=== PATIENT | male | born 1945 | race Caucasian/White ===

== ENCOUNTER 2021-12-03 15:39 | Inpatient (IN) | payer MEDICARE ==
[~2021-12-03] VITALS: Ht 175.3 cm; Wt 74.8 kg
[2021-12-03] MEDS ORDERED: ATOR20TA PO (16:09)
[2021-12-03] MEDS ORDERED: ESCI10TA PO (16:09)
[2021-12-03] MEDS ORDERED: FOLI0.4T6 PO (16:09)
[2021-12-03] MEDS ORDERED: LEVO75TA7 PO (16:09)
[2021-12-03] MEDS ORDERED: SENN-175 PO (16:09)
[2021-12-03] MEDS ORDERED: TEMAZEPAM 7.5 MG CAPSULE PO PRN (16:30)
[2021-12-03] MEDS ORDERED: MAGNESIUM HYDROXIDE 30 ML UDC PO PRN (16:30)
[2021-12-03] MEDS ORDERED: ACETAMINOPHEN 325 MG TABLET PO PRN (16:30)
[2021-12-03] MEDS ORDERED: MAG HYDROX/AL HYDROX/SIMETH 30 ML UDC PO PRN (16:30)
[2021-12-03] MEDS ORDERED: clonazePAM 0.5 MG TABLET PO PRN (16:30)
[2021-12-03] MEDS ORDERED: BLOOD SUGAR DIAGNOSTIC 1 EACH STRIP IN ONE (16:30)
[2021-12-03 16:40] VITALS: BP 107/56
--- NOTE | 2021-12-03 18:09 | NUR ---
Admitted a 75 years male from [facility] on 5150 for DTS. Radio call for a missing person. Pt. was upset/suicidal due to declining health. Pt. was located in a hotel with empty bottle of [place] and a large bottle of whiskey. Pt. left a suicide note and a packaged property for family. Upon face to face assessment the reason he overdosed on [place] with alcohol due to his physical symptoms getting worst but denied suicidal at this time and denied being hopeless and said he is depressed. V/S taken, contraband done and pt. is selective in signing the admissions papers. Dr. Hammond made aware of the admission and gave orders. Velasquez Woodard made aware of the admission, reconciled meds, ordered hat pt. may do self catheterization and Velasquez Woodard came and assessed and spoke to pt. Will endorse to incoming nurse for the completion of the admission
--- NOTE | 2021-12-03 18:22 | NUR ---
Per pt. has an advance directive but she is not bringing with her and said it's a Full Code and was advised to bring the advance directive papers.
[2021-12-03] MEDS: PREGABALIN 25 MG CAPSULE PO SCH (18:59)
[2021-12-03 20:07] VITALS: BP 129/67
[2021-12-03] MEDS: SENNOSIDES 8.6 MG TABLET PO SCH (21:12)
[2021-12-03] MEDS: ATORVASTATIN 10 MG TABLET PO SCH (21:13)
[2021-12-04 08:00] VITALS: BP 133/66
[2021-12-04] MEDS: PREGABALIN 25 MG CAPSULE PO SCH ×3 (09:00→17:00)
[2021-12-04] MEDS: LEVOTHYROXINE SODIUM 75 MCG TABLET PO SCH ×2 (09:00→09:03)
[2021-12-04] MEDS: SENNOSIDES 8.6 MG TABLET PO SCH ×2 (09:02→21:11)
[2021-12-04] MEDS: FOLIC ACID 1 MG TABLET PO SCH (09:04)
[2021-12-04] MEDS: ESCITALOPRAM OXALATE (10 MG) 10 MG TABLET PO SCH (11:41)
[2021-12-04 11:43] LABS: CALCIUM, SERUM 8.9 mg/dL (8.5-10.1); CARBON DIOXIDE 22 mmol/L (21-32); CHLORIDE 108 mmol/L (98-107); CREATININE 1.9 mg/dL (0.6-1.3); GLUCOSE 88 mg/dL (74-106); POTASSIUM 4.8 mmol/L (3.5-5.1); SODIUM SERUM 141 mmol/L (136-145); UREA NITROGEN, BLOOD 30 mg/dL (7-18)
[2021-12-04 11:44] LABS: ALANINE AMINOTRANSFERASE 33 U/L (12-78); ALBUMIN 3.2 g/dL (3.4-5.0); ASPARTATE AMINOTRANSFERASE 26 U/L (15-37); BILIRUBIN,TOTAL 0.4 mg/dL (0.2-1.0); TOTAL PROTEIN, SERUM 5.8 g/dL (6.4-8.2)
[2021-12-04 14:30] LABS: ALKALINE PHOSPHATASE 69 U/L (46-116)
[2021-12-04 16:00] VITALS: BP 125/67
--- NOTE | 2021-12-04 18:49 | NUR ---
IN AM AGITATED AND ADAMANT ABOUT NOT TAKING LYRICADUE TO KIDNEY PROBLEMS
[2021-12-04 20:00] VITALS: BP 107/68
[2021-12-04 20:43] LABS: CHOLESTEROL 139 mg/dL (<200); HDL CHOLESTEROL 51 mg/dL (40-60); LDL 58 mg/dL (0-99); TRIGLYCERIDES 159 mg/dL (30-150)
[2021-12-04] MEDS: ATORVASTATIN 10 MG TABLET PO SCH (21:17)
--- NOTE | 2021-12-04 21:17 | NUR ---
RN NOTES: REFUSEL MEDICATIONS PT. REFUSED SCHEDULE LIPITOR 20 MG PO, PER PT. I NO NEED TO TAKE LIPITOR AND MY PRIMARY CARE STOP ME THIS MEDICATIONS, ENCOURAGED X3 RISKS AND BENEFITS EXPLINED BUR PT STRONGLY REFUSED.
[2021-12-05 08:00] VITALS: BP 112/61
[2021-12-05] MEDS: SENNOSIDES 8.6 MG TABLET PO SCH ×2 (08:02→20:58)
[2021-12-05] MEDS: LEVOTHYROXINE SODIUM 75 MCG TABLET PO SCH (08:02)
[2021-12-05] MEDS: FOLIC ACID 1 MG TABLET PO SCH (08:02)
[2021-12-05] MEDS: PREGABALIN 25 MG CAPSULE PO SCH ×3 (08:02→16:49)
[2021-12-05] MEDS: ESCITALOPRAM OXALATE (10 MG) 10 MG TABLET PO SCH (08:02)
[2021-12-05 16:00] VITALS: BP 121/69
[2021-12-05 19:50] VITALS: BP 118/66
[2021-12-05] MEDS: ATORVASTATIN 10 MG TABLET PO SCH (21:19)
--- NOTE | 2021-12-05 22:48 | NUR ---
Patient refused skin assessment.
[2021-12-06 08:00] VITALS: BP 126/70
[2021-12-06 08:51] LABS: CALCIUM, SERUM 9.3 mg/dL (8.5-10.1); CARBON DIOXIDE 24 mmol/L (21-32); CHLORIDE 109 mmol/L (98-107); CREATININE 2.1 mg/dL (0.6-1.3); GLUCOSE 86 mg/dL (74-106); MAGNESIUM 2.2 mg/dL (1.8-2.4); PHOSPHORUS 4.2 mg/dL (2.5-4.9); POTASSIUM 4.6 mmol/L (3.5-5.1); SODIUM SERUM 141 mmol/L (136-145); UREA NITROGEN, BLOOD 32 mg/dL (7-18)
[2021-12-06] MEDS: PREGABALIN 25 MG CAPSULE PO SCH ×3 (09:00→17:07)
[2021-12-06] MEDS: SENNOSIDES 8.6 MG TABLET PO SCH ×2 (09:00→20:53)
[2021-12-06] MEDS: FOLIC ACID 1 MG TABLET PO SCH (09:00)
[2021-12-06] MEDS: LEVOTHYROXINE SODIUM 75 MCG TABLET PO SCH (09:00)
[2021-12-06] MEDS: ESCITALOPRAM OXALATE (10 MG) 10 MG TABLET PO SCH (09:00)
[2021-12-06 09:13] LABS: BASOPHILS % (AUTO) 0.6 % (0.0-2.0); EOSINOPHILS % (AUTO) 3.4 % (0.0-6.0); HEMATOCRIT 39 % (39-51); HEMOGLOBIN 12.6 g/dL (13.5-17.5); LYMPHOCYTES # (AUTO) 1.1 K/uL (0.8-4.8); LYMPHOCYTES % (AUTO) 26.1 % (20.0-44.0); MEAN CORPUSCULAR HGB CONC 33 g/dl (31.0-36.0); MEAN CORPUSCULAR VOLUME 96 fL (80-96); MONOCYTES # (AUTO) 0.3 K/uL (0.1-1.30); MONOCYTES % (AUTO) 7.3 % (2.0-12.0); NEUTROPHILS # (AUTO) 2.6 K/uL (1.8-8.9); NEUTROPHILS % (AUTO) 62.6 % (43.0-81.0); PLATELET COUNT (AUTO) 81 K/uL (150-450); RED BLOOD CELL COUNT(AUTO) 4.01 MIL/uL (4.5-6.0); WHITE BLOOD COUNT (AUTO) 4.2 K/uL (4.3-11.0)
--- NOTE | 2021-12-06 09:39 | NUR ---
MATTI Initial Discharge Plan: Patient currently resides at home located at [address] [place] [address]; ([phone]). Patient lives with Tammy ([phone]). Patient would want to to return back home upon dc. MATTI will work with the MD, treatment team, and family to help coordinate appropriate discharge.
--- NOTE | 2021-12-06 09:39 | NUR ---
SW Source Admit: Patient was placed on a 5150 hold for danger to self. Patient has been depressed due to physical decline. Patient went to a Hotel and overdosed on [place] and alcohol. Patient currently resides at home located at [address] [place] [address]; ([phone]). Patient lives with Tammy ([phone]). Patient would want to to return back home upon dc.
--- NOTE | 2021-12-06 09:40 | NUR ---
Social Work Note/Substance Abuse Intervention: Patient was provided with a brief substance abuse intervention and referred to [facility] ([phone]), [facility] ([phone]), and [facility] ([phone]) for drinking alcohol daily.
--- NOTE | 2021-12-06 11:05 | NUR ---
MATTI Family Contact: MATTI spoke with patient's Tammy ([phone]) to discuss treatment plan and discharge plan. She stated that pt is welcomed back home upon dc and takes care of him.
[2021-12-06 11:34] LABS: BAND % (MANUAL) 2 % (0.0-5.0); EOSINOPHILS % (MANUAL) 6 % (0-4); LYMPHOCYTES % (MANUAL) 25 % (16-48); MONOCYTES % (MANUAL) 6 % (0-11.0); NEUTROPHILS % (MANUAL) 61 (42-76)
[2021-12-06 16:00] VITALS: BP 123/63
[2021-12-06 20:32] VITALS: BP 117/73
[2021-12-06] MEDS: ATORVASTATIN 10 MG TABLET PO SCH (21:11)
[2021-12-06 21:30] VITALS: BP 128/70
[2021-12-07 07:29] LABS: BASOPHILS % (AUTO) 0.7 % (0.0-2.0); EOSINOPHILS % (AUTO) 3.1 % (0.0-6.0); HEMATOCRIT 37 % (39-51); HEMOGLOBIN 12.1 g/dL (13.5-17.5); LYMPHOCYTES # (AUTO) 1.2 K/uL (0.8-4.8); LYMPHOCYTES % (AUTO) 26.7 % (20.0-44.0); MEAN CORPUSCULAR HGB CONC 33 g/dl (31.0-36.0); MEAN CORPUSCULAR VOLUME 96 fL (80-96); MONOCYTES # (AUTO) 0.3 K/uL (0.1-1.30); MONOCYTES % (AUTO) 7.5 % (2.0-12.0); NEUTROPHILS # (AUTO) 2.7 K/uL (1.8-8.9); PLATELET COUNT (AUTO) 79 K/uL (150-450); RED BLOOD CELL COUNT(AUTO) 3.81 MIL/uL (4.5-6.0); WHITE BLOOD COUNT (AUTO) 4.4 K/uL (4.3-11.0)
[2021-12-07 08:00] VITALS: BP 118/72
[2021-12-07 08:46] LABS: CALCIUM, SERUM 8.8 mg/dL (8.5-10.1); CARBON DIOXIDE 23 mmol/L (21-32); CHLORIDE 108 mmol/L (98-107); CREATININE 2.1 mg/dL (0.6-1.3); GLUCOSE 97 mg/dL (74-106); MAGNESIUM 2.1 mg/dL (1.8-2.4); PHOSPHORUS 4.6 mg/dL (2.5-4.9); POTASSIUM 5.1 mmol/L (3.5-5.1); SODIUM SERUM 141 mmol/L (136-145); UREA NITROGEN, BLOOD 35 mg/dL (7-18)
[2021-12-07] MEDS: SENNOSIDES 8.6 MG TABLET PO SCH ×2 (09:11→21:16)
[2021-12-07] MEDS: FOLIC ACID 1 MG TABLET PO SCH (09:11)
[2021-12-07] MEDS: PREGABALIN 25 MG CAPSULE PO SCH ×3 (09:11→17:50)
[2021-12-07] MEDS: LEVOTHYROXINE SODIUM 75 MCG TABLET PO SCH (09:12)
[2021-12-07] MEDS: ESCITALOPRAM OXALATE (10 MG) 10 MG TABLET PO SCH (09:12)
--- NOTE | 2021-12-07 13:24 | NUR ---
MATTI Family Contact: MATTI received a call from patient's Tammy ([phone]) who wanted updates on pt's status. SW provided information.
[2021-12-07 16:00] VITALS: BP 127/67
[2021-12-07 19:55] VITALS: BP 111/66
[2021-12-07] MEDS: ATORVASTATIN 10 MG TABLET PO SCH (21:19)
[2021-12-08 07:01] LABS: BASOPHILS % (AUTO) 0.5 % (0.0-2.0); EOSINOPHILS % (AUTO) 3.7 % (0.0-6.0); HEMATOCRIT 35 % (39-51); HEMOGLOBIN 11.9 g/dL (13.5-17.5); LYMPHOCYTES # (AUTO) 1.1 K/uL (0.8-4.8); LYMPHOCYTES % (AUTO) 26.6 % (20.0-44.0); MEAN CORPUSCULAR HGB CONC 34 g/dl (31.0-36.0); MEAN CORPUSCULAR VOLUME 96 fL (80-96); MONOCYTES # (AUTO) 0.4 K/uL (0.1-1.30); MONOCYTES % (AUTO) 9.6 % (2.0-12.0); NEUTROPHILS # (AUTO) 2.4 K/uL (1.8-8.9); NEUTROPHILS % (AUTO) 59.6 % (43.0-81.0); PLATELET COUNT (AUTO) 71 K/uL (150-450); RED BLOOD CELL COUNT(AUTO) 3.67 MIL/uL (4.5-6.0); WHITE BLOOD COUNT (AUTO) 4.1 K/uL (4.3-11.0)
[2021-12-08 08:00] VITALS: BP 118/66
[2021-12-08 08:03] LABS: CALCIUM, SERUM 8.8 mg/dL (8.5-10.1); CARBON DIOXIDE 20 mmol/L (21-32); CHLORIDE 109 mmol/L (98-107); CREATININE 1.9 mg/dL (0.6-1.3); GLUCOSE 93 mg/dL (74-106); MAGNESIUM 2.2 mg/dL (1.8-2.4); PHOSPHORUS 4.5 mg/dL (2.5-4.9); POTASSIUM 4.5 mmol/L (3.5-5.1); SODIUM SERUM 140 mmol/L (136-145); UREA NITROGEN, BLOOD 35 mg/dL (7-18)
[2021-12-08] MEDS: ESCITALOPRAM OXALATE (10 MG) 10 MG TABLET PO SCH (08:04)
[2021-12-08] MEDS: FOLIC ACID 1 MG TABLET PO SCH (08:04)
[2021-12-08] MEDS: LEVOTHYROXINE SODIUM 75 MCG TABLET PO SCH (08:04)
[2021-12-08] MEDS: SENNOSIDES 8.6 MG TABLET PO SCH ×2 (08:04→21:12)
--- NOTE | 2021-12-08 08:42 | NUR ---
Court Hearing Notification: MATTI contacted patient's Tammy ([phone]) to notify that patient's court hearing for 5250 is today.
--- NOTE | 2021-12-08 09:57 | NUR ---
RN-CO: FOLLOWED UP [facility]ARM[facility], LALA SAID THEY WILL DELIVER IT.
[2021-12-08] MEDS: PREGABALIN 25 MG CAPSULE PO SCH ×3 (10:13→16:29)
--- NOTE | 2021-12-08 10:57 | NUR ---
Court Hearing: Patient's court hearing for 5250 was today and it was upheld for GD and danger to self.
--- NOTE | 2021-12-08 11:13 | NUR ---
Coordination of Care: Patient will follow up with (Software Applications Designer) Dr. Roper located at [facility] [address], [address], [place] [address]; ([phone]) on December 13 at 2:30PM, scheduled by Elena. Patient will follow up with (Psychiatrist) Dr. Miki Glass located at [address] [place], [place] [id number] [facility] [address], [place] [address]; ([phone]) on December 21. Patient's family would want to resume services with Home Health with [facility] was arranged (P:[phone], F: [phone]) for medication management, physical therapy, and nursing follow ups they will follow up with pt. for intake evaluation.
--- NOTE | 2021-12-08 12:08 | NUR ---
RN-CO: TRIED TO COLLECT URINE SPECIMEN, PT STATED "I WILL PROVIDE WHEN I AM READY."
--- NOTE | 2021-12-08 14:07 | NUR ---
KAMRANCO: CALLED LAB TO P/U URINE SAMPLE.
[2021-12-08 16:00] VITALS: BP 109/63
--- NOTE | 2021-12-08 16:58 | NUR ---
KAMRANCO: CALLED LAB 2X TO P/U URINE SPECIMEN.
--- NOTE | 2021-12-08 18:02 | NUR ---
RN-CO: CALLED LAB 3X TO GET THE URINE SPECIMEN IN THE UNIT.
[2021-12-08 20:16] VITALS: BP 138/70
[2021-12-08] MEDS: ATORVASTATIN 10 MG TABLET PO SCH (21:12)
[2021-12-09 07:11] LABS: CALCIUM, SERUM 8.7 mg/dL (8.5-10.1); CARBON DIOXIDE 22 mmol/L (21-32); CHLORIDE 109 mmol/L (98-107); GLUCOSE 93 mg/dL (74-106); MAGNESIUM 2.6 mg/dL (1.8-2.4); PHOSPHORUS 4.3 mg/dL (2.5-4.9); POTASSIUM 4.3 mmol/L (3.5-5.1); SODIUM SERUM 140 mmol/L (136-145); UREA NITROGEN, BLOOD 36 mg/dL (7-18)
[2021-12-09 08:00] VITALS: BP 126/73
[2021-12-09 08:04] LABS: BASOPHILS % (AUTO) 0.7 % (0.0-2.0); HEMATOCRIT 35 % (39-51); HEMOGLOBIN 11.5 g/dL (13.5-17.5); LYMPHOCYTES # (AUTO) 1.3 K/uL (0.8-4.8); LYMPHOCYTES % (AUTO) 28.9 % (20.0-44.0); MEAN CORPUSCULAR HGB CONC 33 g/dl (31.0-36.0); MEAN CORPUSCULAR VOLUME 95 fL (80-96); MONOCYTES # (AUTO) 0.4 K/uL (0.1-1.30); MONOCYTES % (AUTO) 9.7 % (2.0-12.0); NEUTROPHILS # (AUTO) 2.5 K/uL (1.8-8.9); NEUTROPHILS % (AUTO) 56.7 % (43.0-81.0); PLATELET COUNT (AUTO) 72 K/uL (150-450); RED BLOOD CELL COUNT(AUTO) 3.62 MIL/uL (4.5-6.0); WHITE BLOOD COUNT (AUTO) 4.4 K/uL (4.3-11.0)
[2021-12-09] MEDS: ESCITALOPRAM OXALATE (10 MG) 10 MG TABLET PO SCH (08:42)
[2021-12-09] MEDS: PREGABALIN 25 MG CAPSULE PO SCH (08:42)
[2021-12-09] MEDS: SENNOSIDES 8.6 MG TABLET PO SCH (08:42)
[2021-12-09] MEDS: LEVOTHYROXINE SODIUM 75 MCG TABLET PO SCH (08:42)
[2021-12-09] MEDS: FOLIC ACID 1 MG TABLET PO SCH (08:42)
--- NOTE | 2021-12-09 10:52 | NUR ---
Discharge Note: Patient will discharge back home located at [address] [place] [address]; ([phone]). Patients Tammy ([phone]) will picker feeder pt at 12PM. Patient is alert and oriented x3 and happy to be going back home. Patient denies suicidal or homicidal ideation. Patient denies visual/auditory hallucinations. Patient will follow up with (Automobile Relocation Engineer) Dr. Roper located at [address], [address], [place] [address]; ([phone]) on December 13 at 2:30PM. Patient will follow up with (Psychiatrist) Dr. Miki Glass located at [address] [address], [place] [address]; ([phone]) on December 21. SW sent patient up with [facility] was arranged (P:[phone], F: [phone]) for medication management, physical therapy, and nursing follow ups they will follow up with pt. for intake evaluation. Patient was referred to [facility] ([phone]), [facility] ([phone]), and [facility] ([phone]) for smoking marijuana and drinking wine. Patient presents with euthymic mood and congruent affect.
--- NOTE | 2021-12-09 11:57 | NUR ---
GPS DISCHARGE NOTE: PATIENT DISCHARGE BACK HOME PICKED UP BY PATIENT ABEL [phone]. PATIENT IN STABLE CONDITION , NO S/S DISTRESS NOTED , NO BEHAVIORAL ISSUES, PT DENIES SI/HI AVH DENIES FEELING DEPRESSED, A/O X3, AMBULATORY STEADY GAIT. JIMMY TIEN ORDER DC HOME WITH RX GIVEN AND EXPLAIN ,DR TOLBERT IN THE UNIT PRESCRIPTION FOR LYRICA GIVEN FAXED TO [facility] [phone]. PT VERBALIZED UNDERSTANDING MEDICATIONS MGMT. ALL BELONGINGS AND VALUABLES RETURNED TO PT,EXIT CARE DONE PRINTED AND SIGN . PATIENT REFUSED SKIN ASSESSMENT. Addendum: 12/09/21 at 1223 by VIRGINIE FIELDS RN DR. TOLBERT AWARE OF TODAY LABS, NO NEW ORDER OKAY TO DISCHARGE.
== END 2021-12-09 12:04 | disposition home or self-care (01) | DRG 881 ==
LOC: GPS 15:39
PROVIDERS: ADMIT Nurse Practitioner Psychiatric/Mental Health; ATTEND Nurse Practitioner Acute Care
DX: F32.9 Major depressive disorder, single episode, unspecified (principal); N17.0 Acute kidney failure with tubular necrosis; D84.9 Immunodeficiency, unspecified; F41.0 Panic disorder [episodic paroxysmal anxiety]; N31.9 Neuromuscular dysfunction of bladder, unspecified; D69.6 Thrombocytopenia, unspecified; E03.9 Hypothyroidism, unspecified; G62.9 Polyneuropathy, unspecified; Z85.46 Personal history of malignant neoplasm of prostate; Z85.51 Personal history of malignant neoplasm of bladder; E78.5 Hyperlipidemia, unspecified; F41.9 Anxiety disorder, unspecified; Z79.899 Other long term (current) drug therapy; Z91.51 Personal history of suicidal behavior
CPT/HCPCS: 36415; 80048-TC; 80053-TC; 80061-TC; 82962-TC; 83735-TC; 84100-TC; 85025-TC; 87081-TC; 94799-TC